=== PATIENT | female | born 1985 | race Caucasian/White ===

== ENCOUNTER 2016-10-07 14:48 | Emergency (ER) | payer OTHER ==
[~2016-10-07] VITALS: Ht 165.1 cm; Wt 63.0 kg
[2016-10-07 15:44] LABS: HEMOGLOBIN 8.8 g/dL (11.7-16.4)
[2016-10-07] MEDS ORDERED: SODIUM CHLORIDE 0.9% 1,000ML IVBOLUS ONE (16:00)
[2016-10-07] MEDS ORDERED: SODIUM CHLORIDE FLUSH 10ML SYR IVF ONE (16:00)
[2016-10-07 17:20] VITALS: BP 100/51
== END 2016-10-07 17:22 | disposition home or self-care (01) ==
LOC: ED 17:00
DX: O03.9 Complete or unspecified spontaneous abortion without complication (principal); D62 Acute posthemorrhagic anemia; Z90.721 Acquired absence of ovaries, unilateral
CPT/HCPCS: 36415; 84702; 85025; 99284; J7030